=== PATIENT | male | born 1965 | race African-American/Black ===

== ENCOUNTER 2016-10-12 16:55 | Observation (INO) | payer OTHER ==
[~2016-10-12] VITALS: Ht 182.9 cm; Wt 87.4 kg
[2016-10-12 17:30] LABS: HEMATOCRIT 43.2 % (38.0-50.0); MCHC 36.1 G/DL (30.0-36.0); MCV 88.5 FL (86-99); MEAN PLAT.VOLUME 8.9 uM^3 (9.0-12.4); PLATELET COUNT 372 K/uL (156-360); RBC DIS.WIDTH-CV 13.2 % (11.8-14.6); RED BLOOD COUNT 4.88 M/uL (4.00-5.50); WHITE BLOOD COUNT 10.7 K/uL (4.1-10.2)
[2016-10-12 17:42] LABS: CHLORIDE 103 mEq/L (99-109); POTASSIUM 4.6 mEq/L (3.7-5.4); SODIUM 138 mEq/L (136-147)
[2016-10-12 17:43] LABS: GLUCOSE 102 mg/dL (70-99)
[2016-10-12 17:45] LABS: ANION GAP 9 MEQ/L (2-14)
[2016-10-12 17:47] LABS: GFR ESTIMATE (CALCULATED) > 59 mL/min/
[2016-10-12 17:48] LABS: UREA NITROGEN (BUN) 11 mg/dL (9-23)
[2016-10-12 17:50] LABS: TROP-I INTERPRETATION NEGATIVE; TROPONIN-I < 0.01 ng/mL (0.0-0.30)
[2016-10-12 22:02] LABS: TROP-I INTERPRETATION NEGATIVE; TROPONIN-I < 0.01 ng/mL (0.0-0.30)
[2016-10-13] MEDS ORDERED: ENDOCET 5-3251 EACH PO (00:10)
[2016-10-13] MEDS ORDERED: LYRICA50 MG PO (00:10)
[2016-10-13] MEDS ORDERED: PREDNISONE10 MG PO ×2 (00:10→12:29)
[2016-10-13] MEDS ORDERED: MELOXICAM15 MG PO (00:11)
[2016-10-13] MEDS ORDERED: LIDOCAINE700 MG TD (00:12)
[2016-10-13 03:43] LABS: TROP-I INTERPRETATION NEGATIVE; TROPONIN-I < 0.01 ng/mL (0.0-0.30)
[2016-10-13 13:02] VITALS: BP 120/74
== END 2016-10-13 14:25 | disposition home or self-care (01) ==
LOC: EME 16:55 → EDOF 10-13 00:35
PROVIDERS: Emergency Medicine; Family Medicine
DX: R07.9 Chest pain, unspecified (principal); M54.2 Cervicalgia; E78.5 Hyperlipidemia, unspecified; R73.9 Hyperglycemia, unspecified; E55.9 Vitamin D deficiency, unspecified; F17.200 Nicotine dependence, unspecified, uncomplicated
CPT/HCPCS: 71020; 71275; 80048; 84484; 85027; 93005; 99281; 99285; G0378; J1170; J1650; J1885; J2270; J2405; J7030